=== PATIENT | female | born 1980 | race Caucasian/White ===

== ENCOUNTER 2016-07-22 21:25 | Emergency (ER) | payer MEDICAID ==
[2016-07-22] MEDS ORDERED: LORazepam 1 MG TABLET ONE ×2 (21:55→22:17)
--- NOTE | 2016-07-22 23:15 | ER NURSING DOCUMENTATION ---
Nurse's Notes [facility] Name:Amber López Age:35 yrs Sex:Female :1980 Arrival Date:07/22/2016 Time:21:25 Bed1 Private MD:Martín Novak Diagnosis:Anxiety Reaction Presentation: 07/22 21:46 Presenting complaint: Patient states: Increased anxiety. Transition of care: Home. [facility] Notified ED Physician of Dr. Coreas notified. 21:46 Method Of Arrival: Walk In [facility] 21:46 Acuity: SHIVAM 4 [facility] Triage Assessment: 21:49 General: Appears distressed, slender, uncomfortable, Behavior is cooperative, restless. 4 Pain: Denies pain. EENT: No deficits noted. Neuro: Level of Consciousness is awake, alert. Cardiovascular: Chest pain is denied. Respiratory: Airway is patent Trachea midline Respiratory effort is even, unlabored, Respiratory pattern is regular, symmetrical. GI: No deficits noted. : No deficits noted. Derm: No deficits noted. Musculoskeletal: No deficits noted. Historical: - Allergies: Augmentin; Latex; - Home Meds: 1. Baclofen Oral Unknown 2. Zantac Oral Unknown 3. Prilosec Oral Unknown 4. Prozac Oral Unknown 5. Ativan Oral Unknown - PMHx: MS; MIGRAINES; Abdominal Pain, Epigastric (June 10, 2016); Constipation (June 10, 2016); - PSHx: APPENDECTOMY; CHOLECYSECTOMY; TUBAL LIGATION; - Tetanus: < 10 years. - Ebola Screening: : No symptoms or risks identified at this time. . - Immunization history: Flu Vaccine None. - Social history: Smoking status: Patient uses tobacco products, light tobacco smoker. Screenin:50 Infectious Disease Risk None. Abuse screen: Unable to Obtain. Nutritional screening: No [facility] deficits noted. Assessment: 21:50 See Triage Assessment done by same RN. 4 Vital Signs: 21:30 BP 109 / 66; Pulse 81; Resp 16; Temp 98.4; Pulse Ox 97% ; Weight 47.63 kg; Height 5 ft. jt 3 in. (160.02 cm); Pain 2/10; 23:13 BP 102 / 67; Pulse 72; Resp 19; Pulse Ox 96% ; Pain 0/10; mk4 21:30 Body Mass Index 18.60 (47.63 kg, 160.02 cm) jt [place] Coma Score: 22:11 Eye Response: spontaneous(4). Verbal Response: oriented(5). Motor Response: obeys cd commands(6). Total: 15. ED Course: 21:26 Patient arrived in ED. jt 21:27 Martín Novak is Private Physician. jt 21:40 Sarai Toney is Primary Nurse. mk4 21:47 Triage completed. mk4 21:[address] Coreas notified. Allergy Band Placed Arm band placed on Bed in mk4 low position Call Light in Reach. 21:51 Valuables Remains with patient. Pulse ox on. NIBP on. mk4 22:05 Karri Coreas MD is Attending Physician. cd 22:07 Martín Novak is Referral Physician. cd Administered Medications: 22:40 Drug: Ativan 1 mg; Route: PO; mk4 23:13 Follow up: Response: No adverse reaction; Anxiety decreased mk4 22:40 Drug: Ativan 1mg 1 mg; Route: Sublingual; mk4 23:13 Follow up: Response: Pharmacy closed - take home med pack 4 Outcome: 22:08 Discharge ordered by . cd 23:13 Discharged to home mk4 23:13 Condition: good 23:13 Discharge Assessment: Patient awake, alert and oriented x 3. No cognitive and/or functional deficits noted. Patient verbalized understanding of disposition instructions. 23:13 Discharge instructions given to patient, Instructed on discharge instructions, follow up and referral plans. medication usage, Demonstrated understanding of instructions, medications, Prescriptions given X 1. 23:14 Patient left the ED. 4 Signatures: Karri Coreas MD MD cd King, Melody mk4 Niki Rowe
--- NOTE | 2016-07-22 23:15 | ER PHYSICIAN DOCUMENTATION ---
Physician Documentation [facility] Name:Amber López Age:35 yrs Sex:Female :1980 Arrival Date:07/22/2016 Time:21:25 Bed1 Private MD:Martín Novak ED, Chris Disposition: 07/22/16 22:08 Discharged to Home/Self Care. Impression: Anxiety Reaction. - Condition is Good. - Discharge Instructions: Anguish - ANXIETY REACTION. - Prescriptions for Ativan 1 mg Oral - take 1 tablet by ORAL route every 6 hours As needed; 10 tablet. - Medical Reconciliation form form. - Follow up: Martín Novak; When: 2 - 3 days; Reason: Recheck today's complaints, Continuance of care. - Problem is an acute exacerbation. - Symptoms have improved. HPI: 07/22 22:09 This 35 yrs old Female presents to ER via Walk In with complaints of Anxiety. cd 22:09 The patient presents to the emergency department with anxiety, over father's recent cd heart surgery, patient having the flu and children ill too. Onset: The symptom(s)/episode began/occurred acutely, today. Past psychiatric history: Prior diagnosis: Anxiety, Psychiatric medications include: Ativan, Patient reports she ran out and needed one this evening, the patient does not have a previous inpatient psychiatric history. Associated signs and symptoms: The patient has no apparent associated signs or symptoms. The patient has experienced similar episodes in the past, and the symptoms today are exactly the same. Historical: - Allergies: Augmentin; Latex; - Home Meds: 1. Baclofen Oral Unknown 2. Zantac Oral Unknown 3. Prilosec Oral Unknown 4. Prozac Oral Unknown 5. Ativan Oral Unknown - PMHx: MS; MIGRAINES; Abdominal Pain, Epigastric (June 10, 2016); Constipation (June 10, 2016); - PSHx: APPENDECTOMY; CHOLECYSECTOMY; TUBAL LIGATION; - Tetanus: < 10 years. - Ebola Screening: : No symptoms or risks identified at this time. . - Immunization history: Flu Vaccine None. - Social history: Smoking status: Patient uses tobacco products, light tobacco smoker. ROS: 22:11 Psych: Positive for anxiety, Negative for depression, drug dependence, alcohol cd dependence, auditory hallucinations, visual hallucinations, homicidal ideation, insomnia, suicide gesture, suicidal ideation. 22:11 All other systems are negative. Exam: 22:11 Constitutional: This is a well developed, well nourished patient who is awake, alert, cd and in no acute distress. 22:11 Psych: Behavior/mood is pleasant, cooperative, anxious, Affect is flat, Oriented to person, place, time, Patient has no thoughts/intents to harm self or others. Judgement / Insight is normal. Memory is normal. Delusions/hallucinations are not present. 22:13 Cardiovascular: Regular rate and rhythm with a normal S1 and S2. No gallops, murmurs, cd or rubs. Normal PMI, no JVD. No pulse deficits. Respiratory: Lungs have equal breath sounds bilaterally, clear to auscultation and percussion. No rales, rhonchi or wheezes noted. No increased work of breathing, no retractions or nasal flaring. 22:13 Neuro: Awake and alert, GCS 15, oriented to person, place, time, and situation. cd Cranial nerves II-XII grossly intact. Motor strength 5/5 in all extremities. Sensory grossly intact. Cerebellar exam normal. Normal gait. Vital Signs: 21:30 BP 109 / 66; Pulse 81; Resp 16; Temp 98.4; Pulse Ox 97% ; Weight 47.63 kg; Height 5 ft. jt 3 in. (160.02 cm); Pain 2/10; 23:13 BP 102 / 67; Pulse 72; Resp 19; Pulse Ox 96% ; Pain 0/10; mk4 21:30 Body Mass Index 18.60 (47.63 kg, 160.02 cm) jt [place] Coma Score: 22:11 Eye Response: spontaneous(4). Verbal Response: oriented(5). Motor Response: obeys cd commands(6). Total: 15. MDM: 22:06 Patient medically screened. cd 22:12 Data reviewed: vital signs, nurses notes, old medical records, and as a result, I will cd discharge patient, prescribe sedation medication, lorazepam. Data interpreted: Pulse oximetry: on room air is 97 %. Interpretation: normal. Counseling: I had a detailed discussion with the patient and/or guardian regarding: the historical points, exam findings, and any diagnostic results supporting the discharge/admit diagnosis, the need for outpatient follow up, for a recheck, with the patient's primary care provider, to return to the emergency department if symptoms worsen or persist or if there are any questions or concerns that arise at home. Response to treatment: the patient's symptoms have markedly improved after treatment, the patient's condition has returned to base line, and as a result, I will discharge patient. Dispensed Medications: 22:40 Drug: Ativan 1 mg; Route: PO; mk4 23:13 Follow up: Response: No adverse reaction; Anxiety decreased mk4 22:40 Drug: Ativan 1mg 1 mg; Route: Sublingual; mk4 23:13 Follow up: Response: Pharmacy closed - take home med pack mk4 Signatures: Karri Coreas MD MD cd King, Melody 4
== END 2016-07-22 23:15 | disposition home or self-care (01) ==
LOC: ER 21:25
DX: F41.9 Anxiety disorder, unspecified (principal); G35 Multiple sclerosis; Z79.899 Other long term (current) drug therapy
CPT/HCPCS: 99283

== ENCOUNTER 2016-08-11 18:01 | Emergency (ER) | payer MEDICAID ==
[2016-08-11] MEDS ORDERED: HYDROmorphone HCL 1 MG/ML SYR ONE ×2 (18:43→20:14)
[2016-08-11] MEDS ORDERED: ONDANSETRON HCL 4 MG/2 ML VIAL ONE (18:44)
[2016-08-11 19:03] LABS: BASOPHILS 0.6 % (0.0-2.0); EOSINOPHILS 2.7 % (0.0-6.0); EOSINOPHILS# 0.2 X 10^3uL (0.0-0.4); HEMATOCRIT 41.4 % (36.0-48.0); HEMOGLOBIN 14.3 g/dL (12.0-16.0); MEAN CELL VOLUME 93.9 fL (80.0-100.0); MEAN CORPUS. HGB CONCENTRATION 34.5 g/dL (32.0-36.0); MEAN CORPUSCULAR HEMOGLOBIN 32.4 pg (29.0-35.0); MEAN PLATELET VOLUME 7.6 fL (7.4-10.4); MONOCYTES 7.5 % (2.0-10.0); MONOCYTES# 0.5 X 10^3uL (0.2-1.0); NEUTROPHILS 62.2 % (54.0-75.0); NEUTROPHILS# 4.6 X 10^3uL (2.6-6.7); PLATELET COUNT 251 X 10^3uL (130-440); RED BLOOD COUNT 4.41 X 10^6uL (4.20-6.10); WHITE BLOOD COUNT 7.3 X 10^3uL (3.9-10.7)
[2016-08-11 19:11] LABS: ALKALINE PHOSPHATASE 43 U/L (38-126); ALT 36 U/L (9-52); AST 19 U/L (14-36); BILIRUBIN, DIRECT 0.1 mg/dL (0.0-0.4); BILIRUBIN, TOTAL 0.3 mg/dL (0.2-1.3); BLOOD UREA NITROGEN 11 mg/dL (7-17); CALCIUM 8.7 mg/dL (8.4-10.2); CHLORIDE 104 mmol/L (98-107); CREATININE 0.6 mg/dL (0.5-1.0); EST GLOMERULAR FILTRATION RATE > 60 mL/min; GLUCOSE 72 mg/dL (70-100); LIPASE 44 U/L (23-300); POTASSIUM 3.8 mmol/L (3.5-5.1); SODIUM 139 mmol/L (137-145); TOTAL PROTEIN 6.8 g/dL (6.3-8.2)
--- NOTE | 2016-08-11 20:07 | CT REPORT ---
HISTORY: Diffuse abdominal pain and cramping. Nausea and vomiting. Prior gallbladder surgery, appendectomy, an d tubal ligation. COMPARISON: 06/10/2016. TECHNIQUE: This examination was performed using automated exposure control, adjustment of mA or kV according to patient size, and/or use of iterative reconstruction technique. Contrast enhanced CT images of the ab domen and pelvis were obtained following the intravenous administration of 100 cc Omnipaque 300. FINDINGS: Abdomen: Lung bases: Evaluation of the lung bases is limited due to respiratory motion artifact. Very small r ight and trace left pleural effusion seen on the prior study. To have resolved. There is very mild de pendent atelectasis in the lower lobes decreasing since the prior study. There is a tiny 4 mm nodule in the posterior right lower lobe (image 10 series 2) which was obscured by atelectasis on the prior study and is likely postinfectious or postinflammatory in etiology. Liver: There is very mild periportal edema decreasing since the prior study. No focal liver lesions are identified. Gallbladder: There is again evidence of a cholecystectomy with surgical clips in the gallbladder fos sa. Spleen: Normal. Pancreas: Normal. Adrenal glands: Normal. Kidneys: Normal. Bowel: The unopacified bowel loops are normal in caliber. There is a suture line along the cecal tip compatible with prior cholecystectomy. There is prominent fecal material in the colon suggesting con stipation. Peritoneum: Minimal ascites seen on the prior study has resolved. Retroperitoneum: No adenopathy. Pelvis: Bowel: The unopacified bowel loops are normal in caliber. There is desiccated fecal material in the sigmoid colon and rectum suggesting constipation. Bladder: Normal. Uterus: Normal. Peritoneum: Minimal ascites seen on the prior study has resolved. Retroperitoneum: No adenopathy. Visualized osseous structures: Normal. IMPRESSION: 1. No acute intra-abdominal process. 2. Very mild nonspecific periportal edema has decreased since the prior study. 3. Interval resolution of mild ascites. 4. Very small right and trace left pleural effusions have also resolved. 5. Probable constipation. The findings were communicated to TONYA SAXENA at 08/11/2016 8:05 PM. Final Electronic Signature: This report was electronically signed by Wade Viera MD on 08/11/2016 8 :05 PM. kathy /
[2016-08-11] MEDS ORDERED: PHENAZOPYRIDINE 100 MG TABLET PO ONE (20:49)
--- NOTE | 2016-08-11 21:06 | ER NURSING DOCUMENTATION ---
Nurse's Notes [facility] Name:Amber López Age:35 yrs Sex:Female :1980 Arrival Date:08/11/2016 Time:18:01 Bed3 Private MD:Martín Novak Diagnosis:Abdominal Pain, Unspecified;Dehydration Presentation: 08/11 18:05 Acuity: SHIVAM 3 tg 18:21 Presenting complaint: Patient states: Pt. with lower abdominal pain started this AM, ke and pt. had more trouble that usual voiding. Pain increased throughout the day and took 1 Bactrim. Vomited this afternoon and is feeling worse overall. Transition of care: Home. Notified ED Physician of patient's arrival and CC Hernan Dela Cruz notified. 18:21 Method Of Arrival: Private Vehicle [facility] Triage Assessment: 18:26 General: Appears distressed, uncomfortable, unkempt, Behavior is agitated, anxious, ke crying, listless. Pain: Complains of pain in right lower quadrant and left lower quadrant Pain currently is 8 out of 10 on a pain scale. EENT: Oral mucosa is moist. Neuro: Level of Consciousness is awake, alert, Oriented to person, place, time, event. Cardiovascular: Capillary refill is brisk Heart tones S1 S3 present. Respiratory: Airway is patent Trachea midline Breath sounds are clear bilaterally. GI: Abdomen is flat, non- distended Bowel sounds diminished in right upper quadrant, left upper quadrant, right lower quadrant and left lower quadrant Abd is soft Abdomen is tender to palpation in right lower quadrant and left lower quadrant. : No deficits noted. Derm: Skin is healthy with good turgor, Skin is dry, Skin is pale. Musculoskeletal: No deficits noted. 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 Baclofen Oral 2. Neurontin Oral 3. Flonase Nasal 4. vit. D 5. Ativan Oral 6. Prilosec Oral 7. Carafate Oral 8. Zantac Oral - PMHx: MULTIPLE SCLEROSIS; Back Injury; Stomach ulcer; - PSHx: APPENDECTOMY; CHOLECYSTECTOMY; - Tetanus: < 10 years. - Ebola Screening: : Patient negative for fever greater than or equal to 101.5 degrees Fahrenheit, and additional compatible Ebola Virus Disease symptoms. Patient denies exposure to infectious person. Patient denies travel to an Ebola-affected area in the 21 days before illness onset. No symptoms or risks identified at this time. . - Immunization history: Pneumococcal vaccine status is unknown, Flu Vaccine None. - Social history: Smoking status: Patient uses tobacco products, current every day smoker. Screenin:30 Infectious Disease Risk None. Abuse screen: Denies threats or abuse. Denies injuries ke from another. Nutritional screening: No deficits noted. Assessment: 18:30 See Triage Assessment done by same RN. ke 18:57 Reassessment: Pt. with decrease in O2 sat after Dilaudid. O2 applied.. ke 20:36 Reassessment: Patient states feeling better. Patient states symptoms have improved. tg Patient appears in no apparent distress at this time. 20:53 Reassessment: Pt awaiting ride t opick her up. . tg Vital Signs: 18:10 BP 126 / 87; Pulse 87; Resp 16; Temp 98.5; Pulse Ox 95% on R/A; Weight 47.63 kg; Height ke 5 ft. 3 in. (160.02 cm); Pain 8/10; 18:52 BP 110 / 64; Pulse 75; Resp 18; Pulse Ox 87% on R/A; Pain 6/10; ke 21:03 BP 122 / 72; Pulse 82; Resp 16; Pulse Ox 94% on R/A; Pain 4/10; tg 18:10 Body Mass Index 18.60 (47.63 kg, 160.02 cm) ED Course: 18:02 Patient arrived in ED. ama 18:03 Martín Novak is Private Physician. ama 18:05 Triage completed. tg 18:07 John Becerra MD is Attending Physician. jm 18:13 Hilary Horne, DRE is Primary Nurse. ke 18:[address] Becerra notified. ke 18:30 Valuables Remains with patient Patient has correct armband on for positive ke identification. Placed in gown. Bed in low position. Call light in reach. Side rails up X 1. 19:10 Inserted peripheral IV: 20 gauge in left forearm. Oxygen Oxygen administration via nasal cannula @ 2L/min. 19:25 Attending Physician role handed off by John Becerra MD cd 19:25 Karri Coreas MD is Attending Physician. cd 19:[address] hz 19:[address]. hz 20:25 Martín Novak is Referral Physician. cd 20:36 Awaiting bed assignment. tg Administered Medications: 18:30 Drug: NS 0.9% 2000 ml; Route: IV; Rate: bolus; Site: left antecubital; tg 20:37 Follow up: IV Status: Completed infusion; IV Intake: 2000ml tg 18:46 Drug: Zofran 4 mg; Route: IVP; Infused Over: 2 mins; Site: left forearm; ke 19:07 Follow up: Response: Nausea is increased ke 18:46 Drug: Dilaudid 0.5 mg; Route: IVP; Site: left forearm; ke 19:07 Follow up: Response: Pain is decreased ke 19:09 Drug: Dilaudid 0.5 mg; Route: IVP; Site: left forearm; ke 20:01 Follow up: Response: No adverse reaction; No change in condition tg 20:10 Drug: Dilaudid 0.5 mg; Route: IVP; Site: left antecubital; tg 20:36 Follow up: Response: Pain is decreased tg 20:52 Drug: Pyridium 200 mg; Route: PO; tg 20:52 Follow up: Response: Medication administered at discharge. tg 20:52 Drug: Pyridium - Phenazopyridine 200mg 200 mg; Route: PO; tg 20:52 Follow up: Response: Pharmacy closed - take home med pack tg Point of Care Testing: Urine Dip: 18:10 pH: 7.0; ; Specific [place]: 1.030; Ketones: Negative; Glucose: Negative; Protein: ke Negative; Leukocytes: Negative; Nitrite: Negative ; Blood: Negative; Bilirubin: Negative ; Urobilinogen: Normal Intake: 20:37 IV: 2000ml; Total: 2000ml. tg Outcome: 19:10 Report given to Juan ERICKSON ke 20:27 Discharge ordered by . cd 21:03 Discharged to home ambulatory. tg 21:03 Condition: improved 21:03 Discharge Assessment: Patient awake and alert. 21:03 Instructed on discharge instructions, follow up and referral plans. medication usage. 21:03 IV D/Ken 21:05 Patient left the ED. tg Signatures: Kevan White RN Karri Fisher MD MD cd Meyer, John, MD MD jm Averdick, Andrew, Reg Reg Hilary Hobbs, RN RN Vaishali Hobbs
--- NOTE | 2016-08-11 21:06 | ER PHYSICIAN DOCUMENTATION ---
Physician Documentation [facility] Name:Amber López Age:35 yrs Sex:Female :1980 Arrival Date:08/11/2016 Time:18:01 Bed3 Private MD:Martín Novak ED, Chris Disposition: 08/11/16 20:27 Discharged to Home/Self Care. Impression: Abdominal Pain, Unspecified, Dehydration. - Condition is Fair. - Discharge Instructions: DEHYDRATION (7y-Adult), Abdomen - ABDOMINAL PAIN, Unknown Cause, (Female). - Medical Reconciliation form form. - Follow up: Martín Novak; When: 2 - 3 days; Reason: Recheck today's complaints, Continuance of care. - Problem is an acute exacerbation. - Symptoms have improved. HPI: 08/11 18:41 This 35 yrs old Female presents to ER via Private Vehicle with complaints of jm Abdominal Pain. 18:41 The patient presents with abdominal pain in the lower abdomen, in the left lower jm quadrant. Onset: The symptoms/episode began/occurred today. The symptoms do not radiate. Associated signs and symptoms: Pertinent positives: dysuria. The symptoms are described as sharp. Modifying factors: the symptoms are aggravated by movement, pressure. Severity of pain: in the emergency department the pain is actually worse. The patient has experienced similar episodes in the past, UTI?. The patient has not recently seen a physician. PT woke up w the pain. It has been constant w intermittent spikes of pain that are unbearable. Pt thought it might be a UTI, b/c she gets frequent UTIs, so she took some bactrim, but the pain is still there. . 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 Baclofen Oral 2. Neurontin Oral 3. Flonase Nasal 4. vit. D 5. Ativan Oral 6. Prilosec Oral 7. Carafate Oral 8. Zantac Oral - PMHx: MULTIPLE SCLEROSIS; Back Injury; Stomach ulcer; - PSHx: APPENDECTOMY; CHOLECYSTECTOMY; - Tetanus: < 10 years. - Ebola Screening: : Patient negative for fever greater than or equal to 101.5 degrees Fahrenheit, and additional compatible Ebola Virus Disease symptoms. Patient denies exposure to infectious person. Patient denies travel to an Ebola-affected area in the 21 days before illness onset. No symptoms or risks identified at this time. . - Immunization history: Pneumococcal vaccine status is unknown, Flu Vaccine None. - Social history: Smoking status: Patient uses tobacco products, current every day smoker. ROS: 18:43 Constitutional: Negative for body aches, fever. jm 18:43 Respiratory: Negative for cough, shortness of breath. 18:43 Abdomen/GI: Positive for abdominal pain, nausea, diarrhea. 18:43 Back: Negative for pain at rest, pain with movement. 18:43 Skin: Negative for swelling, ulceration. 18:43 Neuro: Negative for dizziness, weakness. 18:43 All other systems are negative. Exam: 18:43 Constitutional: The patient appears alert, awake, comfortable. 18:43 Eyes: Periorbital structures: appear normal, Conjunctiva: normal. 18:43 ENT: Mouth: is normal, Posterior pharynx: is normal. 18:43 Cardiovascular: Rate: normal, Rhythm: regular. 18:43 Respiratory: Respirations: normal, Breath sounds: are normal. 18:43 Abdomen/GI: Palpation: severe abdominal tenderness, in the left lower quadrant. 18:43 Back: CVA tenderness, is absent. 18:43 : CVA tenderness, is absent, Bladder: tenderness, that is moderate. 18:43 Skin: Appearance: Color: pink, no rash present. 18:43 Neuro: Mentation: is normal, Memory: is normal. 18:43 Psych: Behavior/mood is pleasant, cooperative, Affect is calm. Vital Signs: 18:10 BP 126 / 87; Pulse 87; Resp 16; Temp 98.5; Pulse Ox 95% on R/A; Weight 47.63 kg; Height ke 5 ft. 3 in. (160.02 cm); Pain 8/10; 18:52 BP 110 / 64; Pulse 75; Resp 18; Pulse Ox 87% on R/A; Pain 6/10; ke 21:03 BP 122 / 72; Pulse 82; Resp 16; Pulse Ox 94% on R/A; Pain 4/10; tg 18:10 Body Mass Index 18.60 (47.63 kg, 160.02 cm) ke MDM: 18:07 Patient medically screened. 19:00 Differential diagnosis: bowel obstruction, diverticulitis, Dysmenorrhea, Ectopic cd , Endometriosis, Irritable bowel syndrome, Mesenteric ischemia or infarction, Ovarian Torsion, Pyelonephritis, Ureterolithiasis, urinary tract infection, Ruptured Ovarian Cyst. 19:05 Data interpreted: Pulse oximetry: on room air is 94 %. Interpretation: normal. 19:40 Data reviewed: vital signs, nurses notes, old medical records, lab test result(s), cd radiologic studies, CT scan, and as a result, I will continue to observe the patient, administer IV fluids, NS bolus, NS maintenence, prescribe pain medication, Dilaudid. 20:20 Counseling: I had a detailed discussion with the patient and/or guardian regarding: the cd historical points, exam findings, and any diagnostic results supporting the discharge/admit diagnosis, lab results, radiology results, the need for outpatient follow up, for a recheck, to return to the emergency department if symptoms worsen or persist or if there are any questions or concerns that arise at home. Response to treatment: the patient's symptoms have markedly improved after treatment, the patient's condition has returned to base line, patient is well hydrated. and as a result, I will discharge patient. 08/11 19:09 Order name: CBC AUTO DIF, MDIF/RMOR IF IND; Complete Time: 19:26 EDMS 08/11 19:26 Interpretation: Normal. 08/11 19:14 Order name: BASIC METABOLIC PANEL; Complete Time: 19:26 EDMS 08/11 19:26 Interpretation: Normal. 08/11 19:14 Order name: HEPATIC PANEL; Complete Time: 19:26 EDMS 08/11 19:26 Interpretation: Normal. 08/11 19:14 Order name: LIPASE; Complete Time: 19:26 EDMS 08/11 19:26 Interpretation: Normal. 08/11 19:23 Order name: HCG, SERUM; Complete Time: 19:26 EDMS 08/11 19:26 Interpretation: Normal. 08/11 20:08 Order name: CAT SCAN; ABD/PEL W [id number]; Complete Time: 10:26 EDMS 08/12 10:26 Interpretation: Normal: See Report. Improved previous findings. Probable Constipation. 08/11 18:41 Order name: NPO; Complete Time: 18:47 08/11 18:41 Order name: Pulse Ox Continuous; Complete Time: 18:47 jm 08/11 18:50 Order name: Urine Dip; Complete Time: 18:50 ke 08/11 18:52 Order name: Oxygen; Complete Time: 18:52 ke Dispensed Medications: 18:30 Drug: NS 0.9% 2000 ml; Route: IV; Rate: bolus; Site: left antecubital; tg 20:37 Follow up: IV Status: Completed infusion; IV Intake: 2000ml tg 18:46 Drug: Zofran 4 mg; Route: IVP; Infused Over: 2 mins; Site: left forearm; ke 19:07 Follow up: Response: Nausea is increased ke 18:46 Drug: Dilaudid 0.5 mg; Route: IVP; Site: left forearm; ke 19:07 Follow up: Response: Pain is decreased ke 19:09 Drug: Dilaudid 0.5 mg; Route: IVP; Site: left forearm; ke 20:01 Follow up: Response: No adverse reaction; No change in condition tg 20:10 Drug: Dilaudid 0.5 mg; Route: IVP; Site: left antecubital; tg 20:36 Follow up: Response: Pain is decreased tg 20:52 Drug: Pyridium 200 mg; Route: PO; tg 20:52 Follow up: Response: Medication administered at discharge. tg 20:52 Drug: Pyridium - Phenazopyridine 200mg 200 mg; Route: PO; tg 20:52 Follow up: Response: Pharmacy closed - take home med pack tg Point of Care Testing: Urine Dip: 18:10 pH: 7.0; ; Specific [place]: 1.030; Ketones: Negative; Glucose: Negative; Protein: ke Negative; Leukocytes: Negative; Nitrite: Negative ; Blood: Negative; Bilirubin: Negative ; Urobilinogen: Normal Signatures: Kevan White RN RN tg Daley, Chris, MD MD cd Meyer, John, MD MD jm Evens, Kerry, RN RN ke
== END 2016-08-11 21:06 | disposition home or self-care (01) ==
LOC: ER 18:01
DX: E86.0 Dehydration (principal); R10.32 Left lower quadrant pain; R11.0 Nausea; R19.7 Diarrhea, unspecified; Z87.440 Personal history of urinary (tract) infections; G35 Multiple sclerosis; Z79.899 Other long term (current) drug therapy; F17.210 Nicotine dependence, cigarettes, uncomplicated
CPT/HCPCS: 74177; 80048; 80076; 83690; 84703; 85025; 96361; 96374; 96375; 96376; 99284; J1170; J2405

== ENCOUNTER 2016-08-19 15:52 | Emergency (ER) | payer MEDICAID ==
[2016-08-19] MEDS ORDERED: HYDROmorphone HCL 1 MG/ML SYR ONE ×3 (17:26→18:52)
--- NOTE | 2016-08-19 19:46 | ER PHYSICIAN DOCUMENTATION ---
Physician Documentation [facility] Name:Amber López Age:35 yrs Sex:Female :1980 Arrival Date:08/19/2016 Time:15:52 Bed1 Private MD:Martín Novak ED, Tom Disposition: 08/19 19:23 Chart complete. tl1 Disposition: 08/19/16 19:40 Transfer ordered to [facility]. Diagnosis is Pain- Acute, other. - Reason for transfer: Specialty. - Accepting physician is misha. - Condition is Fair. - Problem is an ongoing problem. - Symptoms have improved. COBRA Form completed? Transfer - Mode of Transportation Ambulance HPI: 19:06 This 35 yrs old Female presents to ER via Private Vehicle with complaints of tl1 Pain, weakness and Numbness - THROUGHOUT ENTIRE BODY. 19:06 The patient has experienced similar episodes in the past, multiple times. She has a h/o tl1 MS FOR years, treated by Dr Givens. After PT 4 days ago she developed gradually worsening global weakness, numbness in her extremeties, and a diffuse burning pain in her legs and arms. She says this feels just like when she initially presented with MS years ago, and today she was so weak she could not lift her toddler and fell on some carpeted stairs, face first about 4 stairs up from the bottom as she was backing down the stairs. She does not have any new complaints or apparent injuries related to that fall. She spoke with Dr Cole, electrician second for Dr Givens who told her to come here for an MRI of the brain, but we do not have that capability.. Historical: - Allergies: Augmentin; Klonopin; Protonix; Latex; copoxone; - Home Meds: 1. Baclofen Oral 2. Prilosec Oral 3. Carafate Oral - PMHx: MULTIPLE SCLEROSIS; Back Injury; Stomach ulcer; - PSHx: APPENDECTOMY; CHOLECYSTECTOMY; - Tetanus: < 10 years. - Ebola Screening: : Patient denies exposure to infectious person. Patient denies travel to an Ebola-affected area in the 21 days before illness onset. . - Immunization history: Pneumococcal vaccine status is unknown. - Social history: Smoking status: Patient uses tobacco products, current every day smoker. Patient/guardian denies using alcohol, marijuana. ROS: 19:14 Neuro: Positive for numbness, weakness, burning extremity pain. tl1 19:14 All other systems are negative. Exam: 19:15 Constitutional: The patient appears alert, awake, well developed, well hydrated, well tl1 groomed, well nourished, in obvious pain, restless, uncomfortable. 19:15 Head/face: Exam is negative for acute changes. 19:15 Eyes: Pupils: equal, round, and reactive to light and accomodation, Extraocular movements: intact throughout. 19:15 Neck: ROM/movement: is normal. 19:15 Cardiovascular: Rate: normal, Rhythm: regular, Heart sounds: normal. 19:15 Respiratory: Respirations: normal, Breath sounds: are normal. 19:15 Abdomen/GI: Palpation: abdomen is soft and non-tender. 19:15 Back: pain, that is moderate, of the lumbar area and sacrum, CVA tenderness, is absent, muscle spasm, is appreciated in the left low back, left mid back, right mid back and right low back. 19:15 Musculoskeletal/extremity: 19:15 Skin: Exam negative for acute changes. 19:15 Neuro: Exam negative for acute changes, Orientation: is normal, Mentation: is normal, Memory: is normal, Cranial nerves: grossly normal, Cerebellar function: not tested, Motor: Strength is 3/5 in the right hand, left hand, right foot, left foot, right leg and left leg, Sensation: marked hyperesthesia with light touch., Gait: not tested. Vital Signs: 16:13 BP 120 / 74; Pulse 88; Pulse Ox 94% ; Pain 8/10; st 17:19 BP 116 / 76; st 17:30 BP 118 / 86; Pulse 72; Pulse Ox 99% ; st 17:41 Pain 7/10; st 18:00 BP 122 / 69; Pulse 70; Pulse Ox 98% ; st 18:30 BP 109 / 75; Pulse 74; Pulse Ox 100% ; st 19:08 Pain 7/10; st MDM: 16:23 Patient medically screened. tl1 19:18 Differential diagnosis: MS flair. Data reviewed: vital signs, nurses notes, old medical tl1 records, and as a result, I will *Transfer Patient. Counseling: I had a detailed discussion with the patient and/or guardian regarding: the historical points, exam findings, and any diagnostic results supporting the discharge/admit diagnosis, the need to transfer to another facility. Medication response: The patient's symptoms worsen despite medication administration, Dilaudid. Physician consultation: DR Cole was called at 18:00, was contacted at 18:20, regarding patient's condition, and will see patient in inpatient room, after a discussion of the case, a recommendation for transfer for higher level of care is made. 08/19 17:27 Order name: Oxygen; Complete Time: 17:28 st Dispensed Medications: 17:18 Drug: Dilaudid 1 mg; Route: IVP; Site: right forearm; st 17:36 Follow up: Response: Pain is decreased st 17:18 Not Given (Patient Refused): Zofran 4 mg IVP once over [address] 17:46 Drug: Dilaudid 1 mg; Route: IVP; Site: right forearm; st 18:54 Follow up: Response: Pain is decreased st 18:44 Drug: Dilaudid 1 mg; Route: IVP; Site: right forearm; st 19:08 Follow up: Response: Pain is unchanged, physician notified st Signatures: Lashawn Gresham, RN RN Ganga Najera MD MD tl1 Jenna Brooks
--- NOTE | 2016-08-19 19:46 | ER NURSING DOCUMENTATION ---
Nurse's Notes [facility] [place] Name:Amber López Age:35 yrs Sex:Female :1980 Arrival Date:08/19/2016 Time:15:52 Bed1 Private MD:Martín Novak Diagnosis:Pain- Acute, other Presentation: 08/19 16:07 Presenting complaint: Patient states: pt feels as though she is having a MS flair up. st Pt is having sciatica pain all the way down both legs and has had frequent falls and weakness all starting Sunday evening. pt spoke to her neurologist and was told she needed to com in to be evaluated. Transition of care: Home. 16:07 Acuity: SHIVAM 3 st 16:07 Method Of Arrival: Private Vehicle st Triage Assessment: 16:10 General: Appears uncomfortable, Behavior is cooperative. General: pt has frequent falls st with the last one leaving her with some left shoulder pain. . Pain: Complains of pain in coccyx, right leg and left leg Pain currently is 8 out of 10 on a pain scale. Pain began building since Sunday. Neuro: Level of Consciousness is awake, alert, Oriented to person, place, time, event, [employer] are weak bilaterally Weakness in bilateral hand's) arm(s) leg(s) foot/feet Gait is pt reports frequent fall and troubles holding her toddler. . Cardiovascular: No deficits noted. Respiratory: No deficits noted. Airway is patent Respiratory effort is even, unlabored, Respiratory pattern is regular, symmetrical, Breath sounds are clear bilaterally. GI: No deficits noted. : Reports troubles feeling when her bladder is full and troubles with starting urination. Musculoskeletal: Musculoskeletal: Reports weakness in right arm, left arm, right leg and left leg numbness in right leg and left leg pain in right leg and left leg Pain is 8 out of 10 on a pain scale. Historical: - Allergies: Augmentin; Klonopin; Protonix; Latex; copoxone; - Home Meds: 1. Baclofen Oral 2. Prilosec Oral 3. Carafate Oral - PMHx: MULTIPLE SCLEROSIS; Back Injury; Stomach ulcer; - PSHx: APPENDECTOMY; CHOLECYSTECTOMY; - Tetanus: < 10 years. - Ebola Screening: : Patient denies exposure to infectious person. Patient denies travel to an Ebola-affected area in the 21 days before illness onset. . - Immunization history: Pneumococcal vaccine status is unknown. - Social history: Smoking status: Patient uses tobacco products, current every day smoker. Patient/guardian denies using alcohol, marijuana. Screenin:13 Infectious Disease Risk None. Abuse screen: Denies threats or abuse. Denies injuries st from another. Nutritional screening: No deficits noted. Assessment: 17:27 General: pt states her pain is a little better.. st 18:36 General: waiting to hear back from [facility] hospitalist. . st Vital Signs: 16:13 BP 120 / 74; Pulse 88; Pulse Ox 94% ; Pain 8/10; st 17:19 BP 116 / 76; st 17:30 BP 118 / 86; Pulse 72; Pulse Ox 99% ; st 17:41 Pain 7/10; st 18:00 BP 122 / 69; Pulse 70; Pulse Ox 98% ; st 18:30 BP 109 / 75; Pulse 74; Pulse Ox 100% ; st 19:08 Pain 7/10; st ED Course: 15:56 Patient arrived in ED. ama 15:56 Martín Novak is Private Physician. ama 15:57 Lashawn Gresham, RN is Primary Nurse. st 16:[address] 16:14 Valuables Remains with patient Patient has correct armband on for positive st identification. Placed in gown. Bed in low position. Pulse Ox - RN Monitoring Only NIBP On - RN Monitoring Only. 16:24 Ganga Quevedo MD is Attending Physician. tl1 17:13 Inserted peripheral IV: 20 gauge in right forearm and blood collected. st Administered Medications: 17:18 Drug: Dilaudid 1 mg; Route: IVP; Site: right forearm; st 17:36 Follow up: Response: Pain is decreased st 17:18 Not Given (Patient Refused): Zofran 4 mg IVP once over [address] 17:46 Drug: Dilaudid 1 mg; Route: IVP; Site: right forearm; st 18:54 Follow up: Response: Pain is decreased st 18:44 Drug: Dilaudid 1 mg; Route: IVP; Site: right forearm; st 19:08 Follow up: Response: Pain is unchanged, physician notified st Outcome: 18:42 [facility] Time: August 19, 2016 at 18:42 19:01 Transferred: Patient will be transported by: [facility]. Report called to: Eric martinez chargemaster specialist. Pt going to room 4318 19:04 Transferred: Nurse and Physician Charting and Notes were sent to Accepting Facility. st All tests and/or procedures with results, if applicable, were sent to accepting facility. 19:04 Condition: stable 19:04 Instructed on need for transfer unable to fax a face sheet. kept getting a busy signal. after multiple attempts called [facility] and was told that they had all the info they need and not to wory about it. 19:40 ER care complete, transfer ordered by . tl1 19:46 Patient left the ED. lb Signatures: Lashawn Gresham, DRE RN Phi Rincon, Ganga Allen MD MD tl1 Jenna Brooks lb
[2016-08-19] MEDS ORDERED: FENTANYL 250 MCG/5 ML VIAL ONE (22:47)
== END 2016-08-19 19:46 | disposition short-term general hospital (02) ==
LOC: ER 15:52
DX: R52 Pain, unspecified (principal); G35 Multiple sclerosis; R53.1 Weakness; M62.830 Muscle spasm of back; R20.3 Hyperesthesia; Z79.899 Other long term (current) drug therapy; F17.210 Nicotine dependence, cigarettes, uncomplicated; Z74.3 Need for continuous supervision
CPT/HCPCS: 96374; 96376; 99285; A0425; A0427; J1170

== ENCOUNTER 2016-09-06 22:45 | Emergency (ER) | payer MEDICAID ==
[2016-09-06] MEDS ORDERED: IBUPROFEN 400 MG TABLET PO ONE (23:03)
[2016-09-06] MEDS ORDERED: ONDANSETRON ODT 4 MG TAB.RAPDIS ONE (23:06)
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
--- NOTE | 2016-09-07 07:57 | RADIOLOGY REPORT ---
Four views of the left wrist demonstrate no displaced fracture or dislocation. The visualized joints appear unremarkable. IMPRESSION: No displaced injury is identified. If clinically indicated, further evaluation and/or follow-up may be of benefit. ALYCIA
== END 2016-09-06 23:27 | disposition other institution (70) ==
LOC: ER 22:45
DX: S00.83XA Contusion of other part of head, initial encounter (principal); S63.502A Unspecified sprain of left wrist, initial encounter; Y04.2XXA Assault by strike against or bumped into by another person, initial encounter; Y04.8XXA Assault by other bodily force, initial encounter; Y07.03 Male partner, perpetrator of maltreatment and neglect; Y92.019 Unspecified place in single-family (private) house as the place of occurrence of the external cause; G35 Multiple sclerosis; Z79.899 Other long term (current) drug therapy
CPT/HCPCS: 99284; A0425; A0429

== ENCOUNTER 2016-10-12 09:48 | Emergency (ER) | payer MEDICAID ==
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
== END 2016-10-12 10:09 | disposition home or self-care (01) ==
LOC: ER 09:48
DX: Z53.21 Procedure and treatment not carried out due to patient leaving prior to being seen by health care provider (principal); F11.23 Opioid dependence with withdrawal
CPT/HCPCS: 99281

== ENCOUNTER 2016-10-20 03:04 | Emergency (ER) | payer MEDICAID ==
--- NOTE | 2016-10-20 03:52 | ER NURSING DOCUMENTATION ---
Nurse's Notes [facility] Name:Amber López Age:36 yrs Sex:Female :1980 Arrival Date:10/20/2016 Time:03:04 Bed1 Private MD:Jalen Lenz; Martín Novak Diagnosis:Myofascial Cervical Strain;Herniated Disc Presentation: 10/20 03:12 Presenting complaint:. Notified ED Physician of Dr. Saenz notified. lb 03:12 Acuity: SHIVAM 4 lb 03:19 Presenting complaint: Patient states: sharp left side neck pain since last ivy. lb Transition of care: Home. Acute neurological deficit: none identified. 03:19 Method Of Arrival: Walk In lb Triage Assessment: 03:22 General: Appears uncomfortable, Behavior is cooperative, pleasant. Pain: Complains of lb pain in left posterior aspect of neck Pain does not radiate. Pain currently is 10 out of 10 on a pain scale. Quality of pain is described as sharp, Pain began 4 hours ago. Historical: - Allergies: Latex; Augmentin; - Home Meds: 1. Baclofen Oral 2. xanaflex 3. Ativan Oral 4. Prozac Oral 5. Effexor Oral 6. Carafate Oral 7. meloxicam oral 8. Zantac Oral 9. Prilosec Oral - PMHx: MS; ULCERS; - PSHx: Appendectomy; Cholecysectomy; TUBAL LIGATION; - Tetanus: < 10 years. - Ebola Screening: : Patient negative for fever greater than or equal to 101.5 degrees Fahrenheit, and additional compatible Ebola Virus Disease symptoms. Patient denies exposure to infectious person. - Immunization history: Flu Vaccine None. - Social history: Smoking status: Patient uses tobacco products, current every day smoker. Patient uses alcohol only on a social basis. Screenin:24 Infectious Disease Risk None. Abuse screen: Denies threats or abuse. Denies injuries lb from another. Nutritional screening: No deficits noted. Assessment: 03:24 See Triage Assessment done by same RN. Neuro: No deficits noted. Level of Consciousness lb is awake, alert, Oriented to person, place, time, event, Editor Continuity And Script are equal bilaterally Moves all extremities. Gait is steady, Speech is normal. Vital Signs: 03:23 BP 116 / 66; Pulse 89; Resp 16; Temp 98; Pulse Ox 93% on R/A; Weight 47.63 kg; Height 5 lb ft. 3 in. (160.02 cm); Pain 03/06; 03:23 Body Mass Index 18.60 (47.63 kg, 160.02 cm) ED Course: 03:10 Patient arrived in ED. ma1 03:10 Martín Novak is Private Physician. ma1 03:10 Jalen Lenz MD is Private Physician. ma1 03:12 Jenna Brooks is Primary Nurse. lb 03:19 Triage completed. lb 03:20 Guicho Saenz MD is Attending Physician. de 03:47 Martín Novak is Referral Physician. de 03:52 Valuables Remains with patient. lb Administered Medications: 03:19 Drug: oxyCODONE 5 mg; Route: PO; lb 03:51 Follow up: Response: Pain is decreased lb 03:51 Drug: oxyCODONE 5 mg; Route: PO; lb 03:51 Follow up: Response: Pharmacy closed - take home med pack Outcome: 03:47 Discharge ordered by . de 03:51 Discharged to home ambulatory. lb 03:51 Condition: stable 03:51 Discharge Assessment: Patient awake, alert and oriented x 3. No cognitive and/or functional deficits noted. Patient verbalized understanding of disposition instructions. 03:51 Instructed on discharge instructions, follow up and referral plans. no drinking with medication. 03:52 Patient left the ED. Signatures: Guicho Saenz MD MD de Jenna Brooks Chinyere Sae[facility]
--- NOTE | 2016-10-20 03:52 | ER PHYSICIAN DOCUMENTATION ---
Physician Documentation [facility] Name:Amber López Age:36 yrs Sex:Female :1980 Arrival Date:10/20/2016 Time:03:04 Bed1 Private MD:Jalen Lenz; Martín Novak ED JosephrubiaGuicho Disposition: 10/20/16 03:47 Discharged to Home/Self Care. Impression: Myofascial Cervical Strain, Herniated Disc. - Condition is Good. - Discharge Instructions: NECK SPRAIN/STRAIN. - Medical Reconciliation form form. - Follow up: Martín Novak; When: As needed; Reason: Continuance of care. - Problem is an acute exacerbation. - Symptoms have improved. HPI: 10/20 03:43 This 36 yrs old Female presents to ER via Walk In with complaints of Neck sc Pain, <24hrs Old. 03:43 The patient or guardian complains of pain, that is acute. The symptoms are located at sc the C3 and C4. Onset: The symptom(s)/episode began/occurred 10 year(s) ago, and became worse today. Context: The problem was sustained at home, The neck injury/problem resulted from chasing kids no fall, no radiating pain or numbness or weakness. Associated signs and symptoms: The patient has no apparent associated signs or symptoms. The patient has experienced similar episodes in the past, chronically. recently reported narcotics lost or stolen and narcotic use contract at [facility] so can't refill yet. Historical: - Allergies: Latex; Augmentin; - Home Meds: 1. Baclofen Oral 2. xanaflex 3. Ativan Oral 4. Prozac Oral 5. Effexor Oral 6. Carafate Oral 7. meloxicam oral 8. Zantac Oral 9. Prilosec Oral - PMHx: MS; ULCERS; - PSHx: Appendectomy; Cholecysectomy; TUBAL LIGATION; - Tetanus: < 10 years. - Ebola Screening: : Patient negative for fever greater than or equal to 101.5 degrees Fahrenheit, and additional compatible Ebola Virus Disease symptoms. Patient denies exposure to infectious person. - Immunization history: Flu Vaccine None. - Social history: Smoking status: Patient uses tobacco products, current every day smoker. Patient uses alcohol only on a social basis. ROS: 03:45 Constitutional: Negative for fever, chills, and weight loss. sc Eyes: Negative for injury, pain, redness, and discharge. ENT: Negative for injury, pain, and discharge. Cardiovascular: Negative for chest pain, palpitations, and edema. Respiratory: Negative for shortness of breath, cough, wheezing, and pleuritic chest pain. Abdomen/GI: Negative for abdominal pain, nausea, vomiting, diarrhea, and constipation. Back: Negative for injury and pain. MS/Extremity: Negative for injury and deformity. Skin: Negative for injury, rash, and discoloration. 03:45 Neuro: Negative for headache, weakness, numbness, tingling, and seizure. sc 03:45 Neck: Positive for pain with movement, pain at rest. 03:45 Abdomen/GI: Positive for some mild wd sxs these past few days. Exam: Eyes: Pupils equal round and reactive to light, extra-ocular motions intact. Lids and lashes normal. Conjunctiva and sclera are non-icteric and not injected. Cornea within normal limits. Periorbital areas with no swelling, redness, or edema. Cardiovascular: Regular rate and rhythm with a normal S1 and S2. No gallops, murmurs, or rubs. Normal PMI, no JVD. No pulse deficits. Respiratory: Lungs have equal breath sounds bilaterally, clear to auscultation and percussion. No rales, rhonchi or wheezes noted. No increased work of breathing, no retractions or nasal flaring. Back: No spinal tenderness. No costovertebral tenderness. Full range of motion. Skin: Warm, dry with normal turgor. Normal color with no rashes, no lesions, and no evidence of cellulitis. 03:46 Neuro: Awake and alert, GCS 15, oriented to person, place, time, and situation. sc Cranial nerves II-XII grossly intact. Motor strength 5/5 in all extremities. Sensory grossly intact. Cerebellar exam normal. Normal gait. 03:46 Constitutional: The patient appears uncomfortable. 03:46 Head/face: Exam is negative for acute changes. 03:46 ENT: TM's: are normal, Nose: is normal. 03:46 Neck: External neck: is normal, C-spine: Nexus Criteria: the patient is not clinically intoxicated, the patient displays normal alertness, no focal neurologic deficit is appreciated, no distracting injury is present, vertebral tenderness, diffusely, ROM/movement: pain, Meningeal signs: are not present. Vital Signs: 03:23 BP 116 / 66; Pulse 89; Resp 16; Temp 98; Pulse Ox 93% on R/A; Weight 47.63 kg; Height 5 lb ft. 3 in. (160.02 cm); Pain 10/10; 03:23 Body Mass Index 18.60 (47.63 kg, 160.02 cm) lb MDM: 03:43 Patient medically screened. sc 03:46 Differential diagnosis: Cervical Disc Herniation. Data reviewed: vital signs, nurses sc notes, and as a result, I will discharge patient. Counseling: I had a detailed discussion with the patient and/or guardian regarding: the historical points, exam findings, and any diagnostic results supporting the discharge/admit diagnosis, the need for outpatient follow up, for a referral to a specialist. Dispensed Medications: 03:19 Drug: oxyCODONE 5 mg; Route: PO; lb 03:51 Follow up: Response: Pain is decreased lb 03:51 Drug: oxyCODONE 5 mg; Route: PO; lb 03:51 Follow up: Response: Pharmacy closed - take home med pack lb Signatures: Guicho Saenz MD MD nd Jenna Brooks
== END 2016-10-20 03:52 | disposition home or self-care (01) ==
LOC: ER 03:04
DX: S16.1XXA Strain of muscle, fascia and tendon at neck level, initial encounter (principal); M50.20 Other cervical disc displacement, unspecified cervical region; X50.9XXA Other and unspecified overexertion or strenuous movements or postures, initial encounter; G35 Multiple sclerosis; Z79.899 Other long term (current) drug therapy
CPT/HCPCS: 99283